=== PATIENT | female | born 2000 | race Caucasian/White ===

== ENCOUNTER 2021-07-18 19:15 | Emergency (ER) | payer OTHER, SELFPAY ==
[2021-07-18 19:20] VITALS: BP 133/84; PULSE 80; RESP 18; TEMP 36.9; O2SAT 99; BMI 34.7
--- NOTE | 2021-07-18 19:24 | XRR_ITS ---
PROCEDURE INFORMATION: Exam: XR Left Finger(s) Exam date and time: 07/18/2021 7:24 PM Age: 20 years old Clinical indication: Injury or trauma; Fall; Blunt trauma (contusions or hematomas); Left; Little finger; Patient HX: Trauma to L 5th digit; Additional info: Trauma, 5th TECHNIQUE: Imaging protocol: XR Left fingers. Views: Minimum 2 views. COMPARISON: No relevant prior studies available. FINDINGS: Bones/joints: Comminuted mildly displaced fracture through the terminal tuft of the 5th distal phalanx. The other bones appear intact. Soft tissues: Normal. XR/XR finger LT min 2V [id number] IMPRESSION: 1. Fifth digit tuft fracture.
--- NOTE | 2021-07-18 19:25 | W.ED.UPPEXIN ---
HPI - Extremity Injury (Upper) General: Chief Complaint: Extremity Injury, Upper Stated Complaint: Broken finger Time Seen by Provider: 07/18/21 19:16 Source: patient Mode of arrival: ambulatory Limitations: no limitations History of Present Illness: Patient is a 20-year-old female presents to ED today for evaluation of a left fifth finger injury that she sustained yesterday while playing softball. Patient states she had pitched softball and immediately picked up another ball. She states the batter then struck the ball she had pitched and states her fifth finger got smashed between the ball she was holding and the ball that was hit. She has noticed progressive swelling/bruising. complaint: injury to: left and finger Onset (ago): day(s) (yesterday) Other Extremity Injury: Left: fingers Other injuries: none Place: outdoors Context: direct blow Associated symptoms: Reports no associated symptoms Review of Systems Musc: Reports: extremity pain (L 5th finger) and extremity swelling Neuro: Denies: numbness in extremities or sensory changes Physical Exam Const: COMMON NORMALS: no acute distress, no limitations and alert GENERAL APPEARANCE: cooperative Extremity: GENERAL: Yes normal exam except as noted LEFT UPPER EXTREMITY: Yes hand & digits (see below) OTHER: pt has swelling/tenderness to distal phalanx of L 5th finger; she has a mild/moderate subungual hematoma Neuro: SENSORIUM/ORIENTATION: Yes alert Course Vital Signs: Vital signs: Vital Signs Temperature 98.4 F 07/18/21 19:20 Pulse Rate 80 07/18/21 19:20 Respiratory Rate 18 07/18/21 19:20 Blood Pressure 133/84 07/18/21 19:20 Pulse Oximetry 99 07/18/21 19:20 MDM - Extremity Injury (Upper) Medical Decision Making Patient has a small avulsion fracture to her distal phalanx. Patient arrived to ED with an appropriate aluminum finger splint. She was recommended to stay in this. She does not have a PCP. Would like referral to orthopedics-this has been placed. Imaging Data XR L 5th finger: My impression: small avulsion fracture off distal phalanx-best seen on lateral Discharge Plan Discharge Patient Disposition: Home Clinical Impression: Fracture of distal phalanx of finger Qualifiers: Encounter type: initial encounter Finger: little finger Fracture type: closed Fracture alignment: nondisplaced Laterality: left Qualified Code(s): S62.667A - Nondisplaced fracture of distal phalanx of left little finger, initial encounter for closed fracture Condition: Stable Discharge Orders: Discharge ED (Routine); Ordered 07/18/21 Ordered By: Estrella Hoffman Coding Level of Care Code ED [employer] for Nacho George
[2021-07-18] MEDS: TRAMadol 50 mg Tablet PO (19:51)
--- NOTE | 2021-07-19 09:08 | DCPLANNER ---
Addendum entered by Jesika Clayton 07/26/21 07:05: Patient had a follow up appointment scheduled for 07.21.21 with DEE DEE Garcia at ortho - patient did attend appointment. Original Note: marketing compliance manager had message to schedule a follow up appointment for patient with ortho. marketing compliance manager called the ortho clinic, spoke with Yeimy, gave clinic patients information. marketing compliance manager was told that patients information would be printed and reviewed. Clinic will call patient with appointment information.
== END 2021-07-18 19:53 | disposition home or self-care (01) ==
PROVIDERS: Emergency Provider Physician Assistant
DX: S62.667A Nondisplaced fracture of distal phalanx of left little finger, initial encounter for closed fracture (principal); W21.07XA Struck by softball, initial encounter; Y93.64 Activity, baseball
CPT/HCPCS: 73140; 99283

== ENCOUNTER → 2021-07-21 09:35 | Outpatient (BNVA) | payer OTHER, SELFPAY | PROVIDERS: Referring Provider Physician Assistant; Visit Provider Physician Assistant | DX: S62.667A Nondisplaced fracture of distal phalanx of left little finger, initial encounter for closed fracture (principal); X58.XXXA Exposure to other specified factors, initial encounter | CPT/HCPCS: 73130 ==